=== PATIENT | male | born 1985 | race Caucasian/White ===

== ENCOUNTER 2021-03-31 02:42 | Inpatient (IN) | payer BC ==
--- OUTSIDE RECORDS SUMMARY | 2021-03-31 02:45 | XMS REPORT | Continuity of Care Document ---
:1985 Author Organization [facility] t Address [address] [place] [address] Care Team Providers Name Role Phone Provider, [facility] Attending Clinician Unavailable Doctor Unassigned, Name Attending Clinician Unavailable Paul Lara Attending Clinician Lindsey SALAZAR Attending Clinician Problems This patient has no known problems. Allergies, Adverse Reactions, Alerts This patient has no known allergies or adverse reactions. Medications This patient has no known medications. Procedures This patient has no known procedures. Encounters Start End Encounter Admission Attending Care Care Encounter Source Date/Time Date/Time Type Type Clinicians Facility Department ID 2021-01-25 2021-01-25 Urgent Provider, [facility] [id number] 08:22:16 09:12:17 Care [facility] [id number] Care [place] [id number] Professlyla [phone] [address]al [address] 2020-04-01 2020-04-01 Orders Doctor BRET [id number] 00:00:00 00:00:00 Only Unassigned, FELICITA [id number] [place] [facility] [id number] 2020-01-09 2020-01-09 Telephone [facility], [facility] [id number] 00:00:00 00:00:00 Brianda Briseno [id number] [place] [id number] Professio [phone] [address] 2020-01-01 2020-01-01 Hospital [facility] [id number] 08:56:00 23:59:00 Encounter Brianda Miller [place] [id number] [place] [id number] [facility] [id number] [id number] 2019-12-29 2019-12-29 Case [facility] [id number] 00:00:00 00:00:00 Management Brianda A Finn [id number] [place] [id number] Professio [phone] [address] 2019-12-26 2019-12-26 Telephone [facility] [id number] 00:00:00 00:00:00 Brianda Miller Finn [id number] [place] [id number] Professio [phone] [address] 2019-12-25 2019-12-25 Telephone [facility] [id number] 00:00:00 00:00:00 Brianda A Finn [id number] [place] [id number] Professio [phone] [address] 2019-12-19 2019-12-19 Telephone [facility] [id number] 00:00:00 00:00:00 Bhavesh Briseno [id number] [place] [id number] Professio [phone] [address] 2019-12-12 2019-12-12 Office [facility] [id number] 09:26:06 10:56:24 Visit Bhavesh Briseno [id number] [place] [id number] Professio [phone] [address] 2019-12-12 2019-12-12 Orders Doctor BRET [id number] 00:00:00 00:00:00 Only Unassigned, FELICITA [id number] [place] [facility] [phone] [id number] Results This patient has no known results.
[2021-03-31] MEDS ORDERED: ONDANSETRON 4 MG/2 ML VIAL ONE (03:26)
[2021-03-31] MEDS ORDERED: NA CHLORIDE 0.9% 1,000 ML ONE ×2 (03:26→05:24)
[2021-03-31 03:45] LABS: Absolute Lymphocytes (CBC) 1.5 K/uL (0.7-4.9); Basophils % 0.4 % (0-1.3); Hematocrit 49.7 % (39.6-49.0); Lymphocytes % 10.1 % (15.3-44.8); MPV 10.1 fL (7.6-11.3); RBC Red Blood Cell Count 5.75 M/uL (4.33-5.43)
[2021-03-31 03:46] LABS: ALT/SGPT 40 U/L (12-78); AST/SGOT 18 U/L (15-37); Albumin 4.8 g/dL (3.4-5.0); Alkaline Phosphatase 77 U/L (45-117); BUN Blood Urea Nitrogen 15 mg/dL (7-18); Bicarbonate 29 mmol/L (21-32); Bilirubin Direct 0.2 mg/dL (0-0.2); Bilirubin Total 0.7 mg/dL (0.2-1.0); Glucose Level 90 mg/dL (74-106); Lipase 98 U/L (73-393); Potassium 3.8 mmol/L (3.5-5.1); Protein, Total 8.6 g/dL (6.4-8.2); Sodium Level 141 mmol/L (136-145)
[2021-03-31 03:51] LABS: Urine Blood Negative (Negative); Urine Glucose Negative (Negative); Urine Protein Negative (Negative); Urine pH 7.5 (5.0-7.0)
[2021-03-31] MEDS ORDERED: PROMETHAZINE INJ 25 MG/ML AMP ONE (04:41)
[2021-03-31] MEDS ORDERED: NA CHLORIDE 0.9% 100 ML ONE (04:41)
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
[2021-03-31 05:47] LABS: Urine Amorphous Sediment 3+ /HPF (NONE SEEN); Urine Bacteria <20 /HPF (NONE SEEN)
[2021-03-31 05:48] LABS: Urine RBC <5 /HPF (NONE SEEN)
--- NOTE | 2021-03-31 05:55 | P.HP ---
Certification for Inpatient Patient admitted to: Inpatient With expected LOS: >2 Midnights Patient will require the following post-hospital care: None Practitioner: I am a practitioner with admitting privileges, knowledge of patient current condition, hospital course, and medical plan of care. Services: Services provided to patient in accordance with Admission requirements found in Title 42 Section 412.3 of the Code of Federal Regulations Patient History Date of Service: 03/31/21 Reason for admission: ileus History of Present Illness: Mr. Hernandes is a 35 yo M with history of multiple abdominal surgeries who presents with 6/10 umbilical pain that woke him up in the middle of the night. He said he had an upset stomach and tried to have a bowel movement. Last bowel movement ~2 days ago. He tried to take Pepto Bismol with no relief. He reports nausea, vomiting, bloating. Denies anorexia, night sweats, chills. WBC 15. Ct scan shows ileus. 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 moist/pink, EOMI, Sclerae nonicteric Neck: Supple, 2+ carotid pulse no bruit, JVD not distended, No Thyromegaly, No LAD Respiratory: Clear to auscultation bilaterally, Normal air movement Cardiovascular: No edema, Normal pulses, Regular rate/rhythm, Normal S1 S2, No gallops, No rubs, No murmurs Gastrointestinal: Normal bowel sounds, No ascites, No masses, No rebound, No guarding, Distended, Tenderness Musculoskeletal: No clubbing, No swelling, No contractures, No erythema, No tenderness, No warmth Integumentary: No rashes, No breakdown, No significant lesion, No tenderness/swelling, No erythema, No warmth, No cyanosis Neurological: Normal gait, Normal speech, Normal strength at 5/5 x4 extr, Normal tone, Normal affect Lymphatics: No axilla or inguinal lymphadenopathy - Studies Laboratory Data (last 24 hrs) 03/31/21 03:11: WBC 15.00 H, Hgb 17.2, Hct 49.7 H, Plt Count 223 03/31/21 03:11: Sodium 141, Potassium 3.8, BUN 15, Creatinine 0.86, Glucose 90, Total Bilirubin 0.7, AST 18, ALT 40, Alkaline Phosphatase 77, Lipase 98 Assessment and Plan - Problems (Diagnosis) (1) Ileus Current Visit: Yes Status: Acute (2) Vomiting Current Visit: Yes Status: Acute Qualifiers: Vomiting type: unspecified Vomiting Intractability: intractable Nausea presence: with nausea Qualified Code(s): R11.2 - Nausea with vomiting, unspecified - Plan continue IVF NPO pain management as needed continue to monitor if vomiting continues, will place NG tube Discharge Plan: Home Plan to discharge in: 24 Hours - Advance Directives Does patient have a Living Will: No Does patient have a Durable POA for Healthcare: No - Code Status/Comfort Care Code Status Assessed: Yes (full code) Critical Care: No Time Spent Managing Pts Care (In Minutes): 70
--- NOTE | 2021-03-31 10:10 | RAD REPORT ---
EXAM DESCRIPTION: RAD - Abdomen 1 View (KUB) - 03/31/2021 10:00 am CLINICAL HISTORY: Abdomen pain. FINDINGS: Mildly dilated small bowel unchanged from the recent CT scan. This probably represents an ileus. Partial small bowel obstruction can also have this appearance. If the patient's symptoms persi st followup abdominal plain film series would be recommended. DITCH DIGGER shunt has its in the central lower abdomen
[2021-03-31 11:15] VITALS: O2SAT 97
[2021-03-31] MEDS ORDERED: ONDANSETRON 4 MG/2 ML VIAL IV PRN (11:17)
[2021-03-31] MEDS: METRONIDAZOLE 500mg IVPB 500 MG/100 ML BAG IV SCH ×2 (11:17→16:20)
[2021-03-31] MEDS ORDERED: KETOROLAC 30 MG/ML INJ IV PRN (11:17)
[2021-03-31 11:32] VITALS: BMI 23.6
--- NOTE | 2021-03-31 11:48 | RAD REPORT ---
EXAM DESCRIPTION: CT Abdomen and Pelvis With Intravenous Contrast CLINICAL HISTORY: The patient is 35 years old and is Male; ABD PAIN TECHNIQUE: Axial computed tomography images of the abdomen and pelvis with intravenous contrast. S agittal and coronal reformatted images were created and reviewed. This CT exam was performed using one or more of the following dose reduction techniques: automated exposure control, adjustment of t he mA and/or kV according to patient size, and/or use of iterative reconstruction technique. COMPARISON: No relevant prior studies available. FINDINGS: Lung bases: Unremarkable. No mass. No consolidation. ABDOMEN: Liver: Unremarkable. No mass. Gallbladder and bile ducts: Unremarkable. No calcified stones. No ductal dilation. Pancreas: No findings to suggest acute pancreatitis. No mass visualized. No ductal dilation. Spleen: Unremarkable. No splenomegaly. Adrenals: Unremarkable. No mass. Kidneys and ureters: Bilateral simple renal cysts, largest measuring 1.6 cm on the right. No fol low-up imaging no solid renal lesion. No hydronephrosis or ureter stone visualized. Stomach and bowel: Multiple fluid-filled, mildly dilated small bowel loops. No definite bowel wa ll thickening. No findings to suggest colitis or diverticulitis. PELVIS: Appendix: No findings to suggest acute appendicitis. Bladder: Unremarkable. No mass. Reproductive: Mild prostate gland enlargement. ABDOMEN and PELVIS: Intraperitoneal space: No free fluid or definite mesenteric stranding. No free air. Bones/joints: No acute fracture. No dislocation. Soft tissues: Unremarkable. Vasculature: Unremarkable. No abdominal aortic aneurysm. Lymph nodes: No pathologically enlarged lymph nodes. Tubes, lines and devices: CRITICAL CARE NURSE SPECIALIST shunt catheter terminates in the midline abdomen. IMPRESSION: 1. Findings are suggestive of small bowel ileus. 2. CRITICAL CARE NURSE SPECIALIST shunt catheter terminates in the midline abdomen. Electronically signed by: Jill Stroud MD 03/31/2021 4:42 AM CDT Due to temporary technical issues with the PACS/Fluency reporting system, reports are being signed by the in house radiologist without review as a courtesy to ensure prompt reporting. The interpreting r adiologist is fully responsible for the content of the report.
[2021-03-31] MEDS: NA CHLORIDE 0.9% 1,000 ML IV SCH (12:10)
[2021-03-31 12:56] LABS: Urine Appearance CLEAR (Clear); Urine Bilirubin NEGATIVE (Negative); Urine Blood NEGATIVE (Negative); Urine Color YELLOW (Yellow); Urine Glucose NEGATIVE (Negative); Urine Protein NEGATIVE (Negative); Urine Specific Gravity 1.025 (1.005-1.030); Urine Urobilinogen 0.2 mg/dL (0.2-1.0)
--- NOTE | 2021-03-31 13:17 | P.PN ---
Subjective Date of Service: 03/31/21 Chief Complaint: ileus Patient reports feeling much better. He states the pain has significantly improved and he is passing gas. No bowel movement yet. Physical Examination - Vital Signs Temperature: 97.5 F Blood Pressure: 127/68 Pulse: 62 Respirations: 16 Pulse Ox (%): 98 - Physical Exam General: Alert, In no apparent distress, Oriented x3 HEENT: Mucous membr. moist/pink Neck: JVD not distended Respiratory: Clear to auscultation bilaterally, Normal air movement Cardiovascular: No edema, Regular rate/rhythm, Normal S1 S2 Gastrointestinal: Hypoactive, Soft and benign, Non-distended, No tenderness Musculoskeletal: No swelling, No tenderness Integumentary: No rashes, No erythema Neurological: Normal strength at 5/5 x4 extr - Studies Laboratory Data (last 24 hrs) 03/31/21 03:11: WBC 15.00 H, Hgb 17.2, Hct 49.7 H, Plt Count 223 03/31/21 03:11: Sodium 141, Potassium 3.8, BUN 15, Creatinine 0.86, Glucose 90, Total Bilirubin 0.7, AST 18, ALT 40, Alkaline Phosphatase 77, Lipase 98 Assessment And Plan - Current Problems (Diagnosis) (1) Ileus Current Visit: Yes Status: Acute (2) Vomiting Current Visit: Yes Status: Acute Qualifiers: Vomiting type: unspecified Vomiting Intractability: intractable Nausea presence: with nausea Qualified Code(s): R11.2 - Nausea with vomiting, unspecified (3) ELECTRICIAN UNDERGROUND (ventriculoperitoneal) shunt status Current Visit: Yes Status: Acute - Plan Continue medical management. IV hydration. Serial abdominal examination. General surgery consulted. Pain management as needed. Small-bowel series per surgery.
[2021-03-31 13:19] LABS: Urine Microscopic Reflex NO UMIC
[2021-03-31] MEDS: CIPROFLOXACIN 400mg IV 400 MG/200 ML BAG IV SCH ×2 (14:01→20:17)
[2021-03-31] MEDS ORDERED: KCL 20 MEQ/100 mL IVPB 20 MEQ/100 ML BAG IV SCH (15:00)
--- NOTE | 2021-03-31 15:54 | CON ---
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 He states he feels like he was getting dehydrated as he was working outside i n his job. He tried taking Pepto-Bismol, which gave him no relief. His last bowel movement was 1 da y prior. He reported some nausea, vomiting only after drinking contrast rapidly. He thought he was supposed to drink it as fast as he could and subsequent to that no other issues. He has been passing gas since being brought to the hospital. He has no more nausea. No vomiting. No abdominal pain. No bloating or distention and feels completely fine at this point with the exception of feeling some degree of tenesmus. Past Medical History: Significant for CANE CUTTER shunt. Past Surgical History: Includes hernia surgery of uncertain type, CANE CUTTER shunt with multiple revisions, left eye surgery. Social History: He denies smoking, alcohol, recreational drug use. Review of Systems: Ten-point review of systems other than HPI, denies. Physical Examination: Vital Signs: At the time of my examination; a temperature 97.5, his blood pressure 127/68, heart rat e 62, respirations 16, SpO2 98% on room air. His BMI is 23.6. General: He is awake, alert, and oriented. Psychiatric: Appropriate. Conversive. HEENT: Normocephalic. Sclerae icteric. Mucous membranes are moist. Oropharynx clear. Neck: Supple without JVD. Chest: Normal expansion and excursion. Cardiovascular: Regular rate and rhythm. Pulmonary: Clear to auscultation bilaterally. Abdomen: Soft, nontender, nondistended. No rebound. No guarding. No focal peritonitis. He has we ll-healed surgical scars over his abdomen and multiple locations. Skin: Warm and dry. Laboratory Data: Reveals a white blood cell count of 15, hemoglobin 7.2, hematocrit of 49.7, platele t count was 223. His neutrophils were 82%. His sodium 141, potassium 3.8, chloride 104, carbon diox vannessa 29, BUN 15, creatinine 0.8, glucose was 90. His total bilirubin 0.7, direct bilirubin 0.2, AST 1 8, ALT 40, alkaline phosphatase 77. His lipase 98. His UA showed trace ketones and 3+ amorphous sed iment, no bacteria appreciated. The remainder of the repeat urinalysis was essentially negative. He had imaging performed, which included a CT scan of the abdomen and pelvis on 03/31/2021, which was o fficially read as findings suggestive of small bowel ileus, CANE CUTTER shunt catheter terminates in the midli ne abdomen. He had a KUB performed as a followup on 03/31/2021, officially read as mildly dilated sm all bowel, unchanged from recent CT, probably represents an ileus. Partial small bowel obstruction c ould also have this appearance. If the patient's symptoms persist, followup abdominal plain films to be recommended. The CANE CUTTER shunt is in central lower abdomen. Assessment And Plan: This is a 35-year-old male, who has resolving abdominal pain at this point. 1.IV fluid hydration. 2.Antibiotic coverage. 3.Serial abdominal exams. 4.Start clear liquid diet and advance as tolerated. 5.I have explained the risks, benefits, and alternatives of the above stated plan. The patient agre es to proceed as indicated. ORION/SHALONDA Voice ID: [id number] Report ID: [id number]
[2021-03-31] MEDS ORDERED: POTASSIUM CL SA 10 MEQ TAB PO ONE (17:00)
[2021-04-01] MEDS: METRONIDAZOLE 500mg IVPB 500 MG/100 ML BAG IV SCH ×2 (01:00→07:44)
[2021-04-01] MEDS: NA CHLORIDE 0.9% 1,000 ML IV SCH ×2 (01:11→07:17)
[2021-04-01 03:53] LABS: Absolute Lymphocytes (CBC) 1.6 K/uL (0.7-4.9); Basophils % 0.6 % (0-1.3); Hematocrit 45.8 % (39.6-49.0); Lymphocytes % 18.3 % (15.3-44.8); MPV 9.9 fL (7.6-11.3); RBC Red Blood Cell Count 5.17 M/uL (4.33-5.43)
[2021-04-01 04:17] LABS: ALT/SGPT 26 U/L (12-78); AST/SGOT 13 U/L (15-37); Albumin 3.6 g/dL (3.4-5.0); Alkaline Phosphatase 59 U/L (45-117); BUN Blood Urea Nitrogen 8 mg/dL (7-18); Bicarbonate 26 mmol/L (21-32); Bilirubin Total 0.9 mg/dL (0.2-1.0); Glucose Level 101 mg/dL (74-106); Magnesium 2.3 mg/dL (1.8-2.4); Potassium 3.7 mmol/L (3.5-5.1); Protein, Total 6.3 g/dL (6.4-8.2); Sodium Level 143 mmol/L (136-145)
[2021-04-01] MEDS ORDERED: POTASSIUM CL SA 10 MEQ TAB PO ONE (09:00)
[2021-04-01] MEDS: CIPROFLOXACIN 400mg IV 400 MG/200 ML BAG IV SCH (09:11)
--- NOTE | 2021-04-01 12:31 | P.DS ---
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 Last bowel movement was 2 days prior. Symptoms associated nausea, vomiting and bloating. CT abdomen and pelvis suggested Ileus. Patient was hospitalized for further management. Hospital Course: Patient admitted to the medical floor and treated with supportive measures including IV fluids, antiemetics and pain medications. His abdominal pain resolved. He passed gas and had a bowel movement. He was seen by general surgery-Dr. Antonio Recommended clear liquid diet and advance as tolerated. Patient tolerated soft diet. His symptoms have resolved. Patient deemed stable for discharge. Vital Signs/Physical Exam: Temp Pulse Resp BP Pulse Ox 97.3 F 59 18 108/71 97 04/01/21 08:00 04/01/21 08:00 04/01/21 08:00 04/01/21 08:00 04/01/21 08:00 General: Alert, In no apparent distress HEENT: Mucous membr. moist/pink Neck: JVD not distended Respiratory: Clear to auscultation bilaterally, Normal air movement Cardiovascular: No edema, Regular rate/rhythm, Normal S1 S2 Gastrointestinal: Soft and benign, Non-distended, No tenderness Musculoskeletal: No swelling Integumentary: No rashes Neurological: Normal strength at 5/5 x4 extr Laboratory Data at Discharge: WBC 8.70 K/uL (4.3-10.9) D 04/01/21 03:21 Hgb 15.0 g/dL (13.6-17.9) 04/01/21 03:21 Hct 45.8 % (39.6-49.0) 04/01/21 03:21 Plt Count 186 K/uL (152-406) 04/01/21 03:21 Sodium 143 mmol/L (136-145) 04/01/21 03:21 Potassium 3.7 mmol/L (3.5-5.1) 04/01/21 03:21 BUN 8 mg/dL (7-18) 04/01/21 03:21 Creatinine 0.78 mg/dL (0.55-1.3) 04/01/21 03:21 Glucose 101 mg/dL (74-106) 04/01/21 03:21 Phosphorus 3.0 mg/dL (2.5-4.9) 04/01/21 03:21 Magnesium 2.3 mg/dL (1.8-2.4) 04/01/21 03:21 Total Bilirubin 0.9 mg/dL (0.2-1.0) 04/01/21 03:21 AST 13 U/L (15-37) L 04/01/21 03:21 ALT 26 U/L (12-78) 04/01/21 03:21 Alkaline Phosphatase 59 U/L (45-117) 04/01/21 03:21 Lipase 98 U/L (73-393) 03/31/21 03:11 Home Medications: NK [No Home Meds] 03/31/21 Physician Discharge Instructions: PROBLEM: Ileus GOAL: Clear understanding of disease process INSTRUCTIONS: - Follow up with your primary care provider in 1-2 weeks. - Follow up with general surgery, Dr. Antonio, as needed. - Return to the ER if your symptoms worsen. - Call the 4th floor at if you have any questions regarding your hospital stay. Diet: Soft diet Activity: As tolerated IMMUNIZATION Influenza Vaccine Indicated: Influenza Vaccine Given: Date Given: Pneumonia Vaccine Indicated: No Pneumonia Vaccine Given: Date Given: Diet: Soft diet Activity: Ad angelika Followup: Frank Antonio MD [ACTIVE - CAN ADMIT] - (Follow up in office as needed.) Time spent managing pt's care (in minutes): 28
[2021-04-01 13:13] VITALS: BP 110/72; TEMP 97.1
[2021-04-01 14:17] LABS: C.diff Antigen/Toxin Ag neg : Tox neg (NEG : NEG)
== END 2021-04-01 15:17 | disposition home or self-care (01) | DRG 390 ==
LOC: ER 02:42 → ERHOLD 05:42 → 4TH 07:55
PROVIDERS: ADMIT Internal Medicine; ATTEND Internal Medicine
DX: K56.7 Ileus, unspecified (principal); Z98.2 Presence of cerebrospinal fluid drainage device; Z88.0 Allergy status to penicillin; Z20.822 Contact with and (suspected) exposure to COVID-19
CPT/HCPCS: 36415; 74018; 74177; 80048; 80053; 80076; 81003; 81015; 83690; 83735; 84100; 85025; 87324; 87449; 94760; 96361; 96374; 96375; 99285; J0744; J2405; J2550; J7030; Q9967; U0003